=== PATIENT | female | born 1950 | race Caucasian/White ===

== ENCOUNTER 2016-10-08 07:24 | Observation (INO) | payer BC, MEDICARE ==
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
[~2016-10-08 07:24] MED LIST: Lidocaine 1%/Sod Bicarbonate in NS 8.4% 1 ML Syringe IV PRN; Sodium Chloride 0.9% 10 ML Syringe FLUSH PRN
[2016-10-08] MEDS ORDERED: Ondansetron 4 MG/2 ML SDV ONE (07:27)
[2016-10-08] MEDS ORDERED: Midazolam 1 MG/ML 2 ML SDV ONE (07:27)
[2016-10-08] MEDS ORDERED: Propofol 200 MG/20 ML SDV ONE (07:27)
[2016-10-08] MEDS ORDERED: Rocuronium 50 MG/5 ML Vial ONE (07:27)
[2016-10-08] MEDS ORDERED: fentaNYL 250 MCG/5 ML SDV ONE (07:27)
[2016-10-08] MEDS ORDERED: Dexamethasone 4 MG/ML 5 ML MDV ONE (07:28)
[2016-10-08] MEDS ORDERED: Lidocaine 1% 4 ML ONE (07:28)
[2016-10-08] MEDS ORDERED: Bupivacaine 0.5%/EPINEPHrine 1:200,000 50 ML MDV ONE (07:41)
[2016-10-08] MEDS ORDERED: Lidocaine 1% with EPINEPHrine 1:100,000 20 ML MDV ONE (07:41)
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
[2016-10-08] MEDS: Lactated Ringers 1,000 ML IV SCH ×2 (08:00→13:14)
[2016-10-08] MEDS ORDERED: ceFAZolin 1 GM Vial ONE (08:36)
[2016-10-08] MEDS ORDERED: Lactated Ringers 1,000 ML ONE (10:22)
[2016-10-08] MEDS ORDERED: ePHEDrine/Normal Saline 25 MG/5 ML Syringe ONE (10:54)
[2016-10-08] MEDS ORDERED: fentaNYL 100 MCG/2 ML SDV ONE ×2 (11:18→12:22)
[2016-10-08] MEDS ORDERED: Phenylephrine/Normal Saline 100 MCG/ML 10 ML Syringe ONE (11:21)
--- NOTE | 2016-10-08 12:37 | PCM.POSTAN ---
POST ANESTHESIA ASSESSMENT - MENTAL STATUS Mental Status: alert, oriented - VITAL SIGNS Pulse Rate: 89 SaO2: 94 Resp Rate: 21 Blood Pressure: 147/74 Temperature: 36.3 C - RESPIRATORY Respiratory Status: respiratory rate WNL, airway patent, O2 saturation stable, supplemental oxygen - CARDIOVASCULAR CV Status: pulse rate WNL, blood pressure stable - GASTROINTESTINAL GI Status: no symptoms - PAIN Pain Score: 0 - POST OP HYDRATION Hydration Status: adequate & stable - OBSERVATIONS Free Text/Narrative:: no anesthesia complications noted
--- NOTE | 2016-10-08 13:14 | PCM.OPNOTE ---
- General Post-Op/Procedure Note Date of Surgery/Procedure: 10/08/16 Operative Procedure(s): Right hemithyroidectomy with frozen section Pre Op Diagnosis: Large right thyroid nodule Post-Op Diagnosis: Same Anesthesia Technique: General ET tube, Local (6 mL) Primary Surgeon: Patria Willoughby Anesthesia Provider: Espinoza Carranza Room Service Attendant: Sisi Gagnon Pathology: Right hemithyroid Fluid Replacement, Intraop: 1,900 (mL crystalloid ) EBL in mLs: 3 Complications: None Condition: Good Free Text/Narrative:: INDICATION FOR PROCEDURE: The patient is a 66-year-old woman who is a patient of Dr. Nallely Redmond who is referred to me for evaluation of a large right thyroid nodule. The nodule was 4.4 cm and I recommended excision based on size. Preoperative central and lateral neck imaging in [place] was unremarkable for any concerning appearing lymph nodes. I discussed with the patient performing a right hemithyroidectomy with frozen section and possible total thyroidectomy. Risks of the procedure were reviewed with her thoroughly and she found these risks acceptable and agreed to proceed. DESCRIPTION OF PROCEDURE: The patient was taken to the operating room and placed in the supine position. After induction of general endotracheal anesthesia, sequential compressive devices were placed on the bilateral lower extremities. The bilateral arms were tucked at the patient's side and pressure points were adequately padded. The neck and upper chest were prepped and draped in the usual sterile fashion after first placing a subscapular transverse rolled placed in the patient's head in a gel doughnut. The patient was then placed in slight reverse Trendelenburg. The breasts were also taped down out of the field. A demarcation was made in a naturally occurring skin line and local anesthetic was injected. An incision was made approximately 4 cm in length, this ultimately had to be enlarged to 6 cm. Dissection was then continued down through platysma using electrocautery and the Harmonic scalpel, subplatysmal flaps were created to the cricoid cartilage superiorly and inferiorly to the clavicle. Dissection was continued laterally the platysma to the external jugular vein and the right hemithyroid. The loose aerolar tissues between the strap muscles were divided using the Harmonic. The strap muscles were retracted laterally and the right thyroid was brought into view. Dissection proceeded around the thyroid capsule using the Harmonic handheld device. The superior thyroid vascular bundle was taken followed by the inferior vascular bundle. The parathyroids were noted superiorly and inferiorly and were left in place. The middle thyroid vein was then taken. The superior laryngeal nerve was seen during the dissection and protected. The ligament of Swann was divided and the recurrent laryngeal nerve was seen and proctected. The right thyroid with nodule was noted and was marked with 2-0 Silk, double stitch medially, short stitch superiorly, and long stitch laterally. A piece of Surgicel was placed in the wound while pathology was pending. 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 Discussion with pathology was had, and plans to leave the left hemithyroid in place were made until final pathology was available. The Surgicel was removed and the wound was irrigated. Hemostasis was obtained using electrocautery. The strap muscles were reapproximated using 3-0 Vicryl running vertical suture. The platysma was then reapproximated using horizontal running 3-0 Vicryl suture. The skin was then reapproximated using a running 4- 0 subcuticular Monocryl suture. Steri-Strips were then applied the wound. The patient was awakened from anesthesia, extubated and transferred to the recovery room in stable condition having tolerated the procedure well. Sponge and instrument counts reported as correct at the end of the case. POST-OPERATIVE PLAN: I discussed with her daughter my intraoperative findings and postoperative plan. She will be admitted overnight for airway observation and some post-operative nausea. Her calcium levels will be monitored. She will likely be able to discharge home tomorrow. We discussed her frozen section pathology was inconclusive and the final pathology was pending.
[2016-10-08] MEDS ORDERED: fentaNYL 100 MCG/2 ML SDV IVPUSH PRN (13:30)
[2016-10-08] MEDS ORDERED: HYDROmorphone 0.5 MG/0.5 ML Syringe IVPUSH PRN (13:30)
[2016-10-08] MEDS ORDERED: Glucose Gel 15 GM in 37.5 GM Tube PO ONE (14:08)
[2016-10-08] MEDS ORDERED: Acetaminophen/oxyCODONE 325-5 MG Tab PO PRN (14:08)
[2016-10-08] MEDS ORDERED: Sodium Chloride 0.9% 10 ML Syringe FLUSH PRN (14:08)
[2016-10-08] MEDS ORDERED: Benzocaine/Cetylpyridinium/Menthol Lozenge MUCMEM PRN (14:08)
[2016-10-08] MEDS ORDERED: Triamcinolone Acetonide 0.1% Crm 15 GM Tube TOP PRN (14:23)
[2016-10-08] MEDS ORDERED: Albuterol 6.7 GM Inhaler INH PRN (14:23)
[2016-10-08] MEDS ORDERED: Insulin Detemir 100 Units/ML 3 ML Pen SUBCUT SCH (21:00)
[2016-10-08] MEDS ORDERED: GLIPIZIDE 5 MG PO SCH (21:00)
[2016-10-08] MEDS ORDERED: glipiZIDE 5 MG Tab PO SCH (21:00)
[2016-10-08] MEDS ORDERED: metFORMIN 500 MG Tab PO SCH (21:00)
[2016-10-08] MEDS ORDERED: LANTUS SUBCUT SCH (21:00)
[2016-10-08] MEDS ORDERED: Lisinopril 20 MG Tab **OWN MED PO ONE (22:00)
[2016-10-08] MEDS ORDERED: METFORMIN 1000 MG PO ONE (22:00)
[2016-10-09] MEDS ORDERED: GLIPIZIDE 5 MG PO SCH (07:00)
[2016-10-09] MEDS ORDERED: METFORMIN 1000 MG PO SCH (07:00)
[2016-10-09] MEDS ORDERED: LANTUS SUBCUT SCH ×2 (07:00)
--- NOTE | 2016-10-09 07:21 | PCM.DCSUM1 ---
Discharge Summary - Hospital Course Free Text/Narrative:: The patient is a 66-year-old woman who I was referred in consultation by Dr. Nallely Redmond for evaluation of a thyroid nodule. The patient had a 4.4 right- sided thyroid nodule. I did send the patient to [facility] for additional ultrasound imaging of her lateral and central neck compartments which were unremarkable for possible metastatic disease. I had discussed with the patient excision excisional biopsy of the nodule as it was so large in size vs. needle biopsy followed by excision, with plans for frozen section and possible completion thyroidectomy if indicated. She elected to proceed directly with excision. The patient underwent right hemithyroidectomy without difficulty on October 08. Her intraoperative pathology was inconclusive, leaning towards benign. For this reason we elected to not proceed with left hemithyroidectomy. She was kept overnight to monitor her airway as she does have some sleep apnea. She had no issues with pain control or signs or symptoms of hypocalcemia, her BMP was normal following morning. Her incision was clean, dry, intact with Dermabond in place. - Discharge Data Discharge Date: 10/09/16 Discharge Disposition: Home, Self-Care 01 Condition: Good - Discharge Diagnosis/Problem(s) (1) Thyroid nodule SNOMED Code(s): 230419627 ICD Code: E04.1 - NONTOXIC SINGLE THYROID NODULE Status: Resolved (2) BMI 45.0-49.9, adult SNOMED Code(s): 762285398, 797720002 ICD Code: Z68.42 - BODY MASS INDEX (BMI) 45.0-49.9, ADULT Status: Chronic (3) Sleep apnea SNOMED Code(s): 96510869 ICD Code: G47.30 - SLEEP APNEA, UNSPECIFIED Status: Chronic (4) HTN (hypertension) SNOMED Code(s): 71793543 ICD Code: I10 - ESSENTIAL (PRIMARY) HYPERTENSION Status: Chronic (5) Diabetes mellitus SNOMED Code(s): 08942785 ICD Code: E11.9 - TYPE 2 DIABETES MELLITUS WITHOUT COMPLICATIONS Status: Chronic (6) Asthma SNOMED Code(s): 538663957 ICD Code: J45.909 - UNSPECIFIED ASTHMA, UNCOMPLICATED Status: Chronic - Patient Summary/Data Operative Procedure(s) Performed: Right hemithyroidectomy with frozen section Consults: Consultations 10/08/16 14:08 Respiratory Care Assess and Treatment [CONS] Routine - Patient Instructions Diet: Regular Diet as Tolerated Activity: Apply Ice, As Tolerated, No Strenuous Activities Driving: Do Not Drive (while on narcotic pain medication ) Showering/Bathing: May Shower Notify Provider of: Fever, Increased Pain, Swelling and Redness, Drainage, Nausea and/or Vomiting Other/Special Instructions: See D/C orders - Discharge Plan Prescriptions/Med Rec: Docusate Sodium [Colace] 100 mg PO DAILY PRN #10 cap PRN Reason: Constipation Ibuprofen 600 mg PO Q6H PRN #30 tablet PRN Reason: Pain Magnesium Hydroxide [Milk of Magnesia] 30 ml PO DAILY PRN #10 cup PRN Reason: Constipation Ondansetron [Zofran ODT] 4 mg PO Q4H PRN #5 tab.dis PRN Reason: Nausea oxyCODONE HCl/Acetaminophen [Percocet 5-325 mg Tablet] 1 - 2 tab PO Q4H PRN #10 tablet PRN Reason: Pain Home Medications: Home Meds Albuterol Sulfate [Proair Hfa] 1 puff INH Q4H PRN 10/07/16 [History] Aspirin [William Chewable Aspirin] 81 mg PO DAILY 10/07/16 [History] Insulin Glarg,Human.Rec.Analog [LantUS Solostar] 22 - 23 units SQ BID 10/07/16 [ History] Lisinopril [Lisinopril] 20 mg PO DAILY 10/07/16 [History] Triamcinolone Acetonide [Triamcinolone Acetonide 0.1% Crm] 1 applic TOP ASDIRECTED PRN 10/07/16 [History] glipiZIDE [Glipizide] 5 mg PO BID 10/07/16 [History] metFORMIN [Glucophage] 1,000 mg PO BID 10/07/16 [History] Docusate Sodium [Colace] 100 mg PO DAILY PRN #10 cap 10/09/16 [Rx] Ibuprofen 600 mg PO Q6H PRN #30 tablet 10/09/16 [Rx] Magnesium Hydroxide [Milk of Magnesia] 30 ml PO DAILY PRN #10 cup 10/09/16 [Rx] Ondansetron [Zofran ODT] 4 mg PO Q4H PRN #5 tab.dis 10/09/16 [Rx] oxyCODONE HCl/Acetaminophen [Percocet 5-325 mg Tablet] 1 - 2 tab PO Q4H PRN #10 tablet 10/09/16 [Rx] Patient Handouts: Thyroidectomy, Thyroidectomy, Care After Referrals: Patria Willoughby MD [Physician] - 10/16/16 10:45 am (Please follow-up with Dr. Willoughby on 10/16/16 at 1045 ) - Discharge Summary/Plan Comment DC Time >30 min.: No - General Info Date of Service: 10/10/16 Functional Status: Reports: pain controlled, tolerating diet, ambulating. Denies: new symptoms - Review of Systems Systems Review Comment: Patient states neck pain is better than prior to surgery. 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 No perioral numbness or tingling. No significant hoarseness. - Patient Data Vitals - Most Recent: Last Vital Signs Temp 98.1 F 10/09/16 03:20 Pulse 92 10/09/16 03:20 Resp 17 10/09/16 03:20 BP 126/58 L 10/09/16 03:20 Pulse Ox 98 10/09/16 03:20 Weight - Most Recent: 279 lb I&O - Last 24 hours: Intake & Output 10/08/16 10/09/16 10/09/16 22:59 06:59 14:59 Intake Total 2470 800 Balance 2470 800 Lab Results - Last 24 hrs: Laboratory Results - last 24 hr 10/08/16 10/08/16 10/08/16 Range/Units 12:35 17:00 21:26 Sodium (136-145) mEq/L Potassium (3.5-5.1) mEq/L Chloride (98-107) mEq/L Carbon Dioxide (21-32) mEq/L Anion Gap (5-15) BUN (7-18) mg/dL Creatinine (0.55-1.02) mg/dL Est Cr Clr Drug Dosing mL/min Estimated GFR (MDRD) (>60) mL/min BUN/Creatinine Ratio (14-18) Glucose (80-115) mg/dL POC Glucose 192 H 221 H 265 H (80-115) mg/dL Calcium (8.5-10.1) mg/dL 10/09/16 10/09/16 Range/Units 05:00 06:30 Sodium 140 (136-145) mEq/L Potassium 4.1 (3.5-5.1) mEq/L Chloride 106 (98-107) mEq/L Carbon Dioxide 25 (21-32) mEq/L Anion Gap 13.1 (5-15) BUN 12 (7-18) mg/dL Creatinine 0.7 (0.55-1.02) mg/dL Est Cr Clr Drug Dosing 66.28 mL/min Estimated GFR (MDRD) > 60 (>60) mL/min BUN/Creatinine Ratio 17.1 (14-18) Glucose 134 H (80-115) mg/dL POC Glucose 125 H (80-115) mg/dL Calcium 8.5 (8.5-10.1) mg/dL Med Orders - Current: Current Medications Albuterol (Proventil Hfa) 0 gm INH Q4H PRN PRN Reason: Shortness of Breath Benzocaine/Menthol (Cepacol Sore Throat) 1 lozenge MUCMEM Q2HR PRN PRN Reason: Sore Throat Glipizide (Glucotrol) 5 - 10 mg PO 0700,2100 [facility] Lisinopril (Prinivil) 20 mg PO DAILY [facility] Metformin 1000 Mg (Own Med) 1 each PO BIDMEALS [facility] Lantus Pen Own Med () 22 - 23 each SUBCUT BIDMEALS [facility] Oxycodone/Acetaminophen (Percocet 325-5 Mg) 1 - 2 tab PO Q4H PRN PRN Reason: Pain (moderate 4-6) Sodium Chloride (Saline Flush) 10 ml FLUSH ASDIRECTED PRN PRN Reason: Keep Vein Open Triamcinolone Acetonide (Triamcinolone Acetonide 0.1% Crm) 0 gm TOP ASDIRECTED PRN PRN Reason: skin complications Discontinued Medications Bupivacaine HCl/Epinephrine Bitart (Marcaine 0.5%/Epinephrine 1:200,000) Confirm Administered Dose 50 ml .ROUTE .STK-MED ONE Stop: 10/08/16 07:42 Last Admin: 10/08/16 09:46 Dose: 3 ml Cefazolin Sodium (Ancef) Confirm Administered Dose 3 gm .ROUTE .STK-MED ONE Stop: 10/08/16 08:37 Dexamethasone (Dexamethasone) Confirm Administered Dose 20 mg .ROUTE .STK-MED ONE Stop: 10/08/16 07:29 Dextrose (Glutose 15) 15 gm PO ONETIME ONE Stop: 10/08/16 14:09 Last Admin: 10/08/16 16:37 Dose: Not Given Ephedrine Sulfate (Ephedrine In Ns) Confirm Administered Dose 25 mg .ROUTE .STK- MED ONE Stop: 10/08/16 10:55 Fentanyl (Sublimaze) Confirm Administered Dose 250 mcg .ROUTE .STK-MED ONE Stop: 10/08/16 07:28 Fentanyl (Sublimaze) Confirm Administered Dose 100 mcg .ROUTE .STK-MED ONE Stop: 10/08/16 11:19 Fentanyl (Sublimaze) Confirm Administered Dose 100 mcg .ROUTE .STK-MED ONE Stop: 10/08/16 12:23 Fentanyl (Sublimaze) 50 mcg IVPUSH Q5M PRN PRN Reason: Pain Stop: 10/08/16 13:46 Last Admin: 10/08/16 13:19 Dose: 50 mcg Glipizide (Glucotrol) 5 mg PO TID [facility] Glipizide (Glucotrol) 5 - 10 mg PO BID [facility] Last Admin: 10/08/16 21:28 Dose: 10 mg Hydromorphone HCl (Dilaudid) 0.5 mg IVPUSH Q15M PRN PRN Reason: Pain Stop: 10/08/16 13:46 Last Admin: 10/08/16 14:19 Dose: 0.5 mg Lactated Ringer's (Ringers, Lactated) 1,000 mls @ 125 mls/hr IV ASDIRECTED [facility] Stop: 10/08/16 23:00 Last Admin: 10/08/16 13:14 Dose: 125 mls/hr Lidocaine HCl (Xylocaine-Mpf 1%) Confirm Administered Dose 4 mls @ as directed .ROUTE .STK-MED ONE Stop: 10/08/16 07:29 Lactated Ringer's (Ringers, Lactated) Confirm Administered Dose 1,000 mls @ as directed .ROUTE .STK-MED ONE Stop: 10/08/16 10:23 Insulin Detemir (Levemir) 22 - 23 unit SUBCUT BID [facility] Lidocaine/Epinephrine (Xylocaine 1% With Epinephrine 1:100,000) Confirm Administered Dose 20 ml .ROUTE .STK-MED ONE Stop: 10/08/16 07:42 Last Admin: 10/08/16 09:46 Dose: 3 ml Lidocaine/Sodium Bicarbonate (Buffered Lidocaine 1% In Ns 8.4%) 0.25 ml IV ONETIME PRN PRN Reason: Prior to IV Start Stop: 10/08/16 18:00 Last Admin: 10/08/16 07:59 Dose: 0.25 ml Lisinopril (Prinivil) 20 mg PO ONETIME ONE Stop: 10/08/16 22:01 Last Admin: 10/08/16 22:01 Dose: 20 mg Metformin HCl (Glucophage) 1,000 mg PO BID [facility] Midazolam HCl (Versed 1 Mg/Ml) Confirm Administered Dose 2 mg .ROUTE .STK-MED ONE Stop: 10/08/16 07:28 Lantus Pen Own Med () 22 - 23 each SUBCUT BIDMEALS [facility] Lantus Pen Own Med () 22 - 23 each SUBCUT BID [facility] Last Admin: 10/08/16 21:30 Dose: 22 each Metformin 1000 Mg (Own Med) 1 each PO ONETIME ONE Stop: 10/08/16 22:01 Last Admin: 10/08/16 22:00 Dose: 1 each Ondansetron HCl (Zofran) Confirm Administered Dose 4 mg .ROUTE .STK-MED ONE Stop: 10/08/16 07:28 Phenylephrine HCl (Phenylephrine In Ns 100 Mcg/Ml) Confirm Administered Dose 1 mg .ROUTE .STK-MED ONE Stop: 10/08/16 11:22 Propofol (Diprivan 20 Ml) Confirm Administered Dose 200 mg .ROUTE .STK-MED ONE Stop: 10/08/16 07:28 Rocuronium [place] (Zemuron) Confirm Administered Dose 50 mg .ROUTE .STK-MED ONE Stop: 10/08/16 07:28 Sodium Chloride (Saline Flush) 10 ml FLUSH ASDIRECTED PRN PRN Reason: Keep Vein Open Stop: 10/08/16 18:00 - Exam Quality Assessment: Denies: supplemental oxygen, urine catheter General: Reports: alert, oriented, cooperative, no acute distress HEENT: Reports: Mucous membr. moist/pink. Denies: Scleral icterus Neck: Reports: supple, trachea midline, other (No swelling. Incision clean, dry , intact without drainage ) Lungs: Reports: Clear to auscultation, Normal respiratory effort Cardiovascular: Reports: Regular Rate, Regular Rhythm Abdomen: Reports: soft, no tenderness, no distension Extremities: Reports: no edema Skin: Reports: warm, dry, intact Wound/Incisions: Reports: healing well. Denies: no drainage, erythema Neurological: Reports: no new focal deficit Psy/Mental Status: Reports: alert, normal affect, normal mood *Q Meaningful Use (DIS) - VTE *Q VTE Criteria *Q: - Stroke *Q Stroke Criteria *Q: - AMI *Q AMI Criteria *Q:
[2016-10-09 08:45] VITALS: BP 109/52
[2016-10-09] MEDS: Lisinopril 20 MG Tab **OWN MED PO SCH ×2 (08:49→10:53)
== END 2016-10-09 11:25 | disposition home or self-care (01) ==
LOC: JD.SDS 07:24 → JD.MS 14:09
PROVIDERS: ADMIT Surgery; ATTEND Surgery
DX: C73 Malignant neoplasm of thyroid gland (principal); G47.30 Sleep apnea, unspecified; I10 Essential (primary) hypertension; E11.9 Type 2 diabetes mellitus without complications; J45.909 Unspecified asthma, uncomplicated; E66.9 Obesity, unspecified; Z79.82 Long term (current) use of aspirin; Z79.4 Long term (current) use of insulin; Z79.899 Other long term (current) drug therapy; Z79.891 Long term (current) use of opiate analgesic; Z68.42 Body mass index [BMI] 45.0-49.9, adult
CPT/HCPCS: 36415; 60220; 80048; 82962; 88307; 88331; 94762; A9270; G0378; J0690; J1100; J1170; J2250; J2405; J3010; J7050; J7120; 00320; J2704

== ENCOUNTER → 2021-10-03 | Day surgery (SDC) | payer MEDICARE, BC ==
[2021-10-03] MEDS: Brimonidine 0.2% Ophth Soln 5 ML Bottle EYEBOTH SCH ×2 (15:27→16:55)
[2021-10-03] MEDS: Phenylephrine 2.5% Ophth Soln 2 ML Bot EYEBOTH SCH ×2 (15:34→15:47)
[2021-10-03] MEDS: Tropicamide 1% Ophth Soln 15 ML Bottle EYEBOTH SCH ×2 (15:40→16:04)
== END ==
LOC: JD.SDS 07:35
PROVIDERS: ATTEND Ophthalmology
DX: E11.36 Type 2 diabetes mellitus with diabetic cataract (principal); H26.493 Other secondary cataract, bilateral; I11.0 Hypertensive heart disease with heart failure; I50.9 Heart failure, unspecified; Z96.1 Presence of intraocular lens; Z98.890 Other specified postprocedural states